=== PATIENT | female | born 1985 | race African-American/Black ===

== ENCOUNTER 2019-09-28 20:13 | Emergency (ER) | payer OTHER, MEDICAID, SELFPAY ==
[2019-09-28 20:14] VITALS: BP 139/80; PULSE 74; RESP 20; TEMP 36.8; O2SAT 100
[2019-09-28 21:14] VITALS: BP 120/73; PULSE 80; RESP 14; TEMP 36.3; O2SAT 98
[2019-09-28 21:17] VITALS: O2SAT 98
--- NOTE | 2019-09-28 21:39 | ED.HEATRA ---
HPI - Head Injury General Chief complaint: Head Injury Stated complaint: head injury Time Seen by Provider: 09/28/19 21:29 Source: patient and RN notes reviewed Mode of arrival: ambulatory Limitations: no limitations History of Present Illness HPI Narrative: Pt is a 34 y/o female who presents to the ED with c/o lt frontal headache secondary to a head injury happening 4 days ago. She notes that she struck the lt side of her forehead on a device at work 4 days ago, and states that she has had persistent pain near the area of injury ever since. Pt notes that her pain intermittently radiates into the lt side of her neck. She states that she has been taking Ibuprofen 800 mg roughly every 4 hours for her pain, but notes that the medication only slightly alleviates her pain. Pt denies any numbness/tingling, changes in vision, changes in hearing, nausea, vomiting, facial droop, or slurred speech. MD Complaint: head pain Onset (ago): day(s) (4) Mechanism of Injury: work related injury Place: work Location of injury: frontal (lt frontal) Radiation: neck (lt side of neck) Other Injuries: none Associated symptoms: denies other symptoms Related Data Allergies Allergy/AdvReac Type Severity Reaction Status Date / Time aspirin Allergy Unknown Verified 07/02/16 20:21 Review of Systems Review of Systems: All systems reviewed & are unremarkable except as noted in HPI and below Eyes: Eyes: Denies change in vision ENT: Denies other (change in hearing) Gastrointestinal: Gastrointestinal: Denies nausea and Denies vomiting Neurologic: Denies Abnormal speech present (slurred speech), Reports headache(s) (lt frontal headache radiating into lt side of neck), Denies numbness, Denies tingling and Reports other (Reports: head injury. Denies: facial droop) PMFSH Past Medical History Medical History Anemia Crohn's disease Surgical History Surgical History Hx of section Social History Social History Smoking status: Former smoker Gender identity (if verbalized by the patient): Female Exam Narrative: Exam Narrative: GENERAL: Well-appearing, well-nourished, and in no acute distress. HEAD: Normocephalic, atraumatic. Eyes: PERRLA, EOMI. ENT: Mucous membranes moist. CHEST: Clear to auscultation. No respiratory distress. HEART: Regular rate and rhythm. Normal peripheral pulses. NEURO: No focal deficits. Alert and oriented x3. PSYCH: Normal mood and affect. Course Course Emergency Course: Recommend alternating ibuprofen and Tylenol. No symptoms of concussion. Seems to be related to traumatic injury as it is pinpoint over where she had struck her head. Vital Signs Vital signs: Vital Signs Temperature 98.2 F 09/28/19 20:14 Pulse Rate 74 09/28/19 20:14 Respiratory Rate 20 09/28/19 20:14 Blood Pressure 139/80 09/28/19 20:14 Pulse Oximetry 100 09/28/19 20:14 Temperature 97.3 F L 09/28/19 21:14 Pulse Rate 80 09/28/19 21:14 Respiratory Rate 14 09/28/19 21:14 Blood Pressure 120/73 09/28/19 21:14 Pulse Oximetry 98 09/28/19 21:17 Discharge Plan Discharge Clinical Impression: Headache Patient Disposition: Home, Self-Care Condition: Stable Instructions: Acute Headache (ED) Additional Instructions: Return the ER if you have a seizure, you have new confusion, you develop focal weakness or numbness in arm or leg, you have additional concerns. Alternate between ibuprofen and Tylenol to help treat your headache. Follow-up/Referrals: UNKNOWN,DOCTOR [Primary Care Provider] - 1 Week
[2019-09-28 22:24] VITALS: BP 119/69; PULSE 81; RESP 14; O2SAT 96
== END 2019-09-28 22:31 | disposition home or self-care (01) ==
PROVIDERS: Emergency Provider Emergency Medicine
DX: R51 Headache (principal); K50.90 Crohn's disease, unspecified, without complications; Z87.891 Personal history of nicotine dependence
CPT/HCPCS: 99283

== ENCOUNTER 2020-03-10 10:58 | Emergency (ER) | payer SELFPAY ==
--- NOTE | ~2020-03-10 | XR_ITS ---
EXAMINATION: XR foot LT min 3V DATE: 03/10/2020 11:49 INDICATION: Left foot pain TECHNIQUE: Dorsoplantar, lateral, and 2 oblique views of the left foot were obtained. COMPARISON: None. FINDINGS: There is no fracture, dislocation, or subluxation. The joint spaces and soft tissues are no rmal. Dorsal and plantar calcaneal enthesophytes are noted. IMPRESSION: 1. No acute osseous abnormality. Reviewed, dictated and finalized at location A.
--- NOTE | ~2020-03-10 | XR_ITS ---
EXAMINATION: XR knee LT min 4V DATE: 03/10/2020 11:48 INDICATION: Left knee pain TECHNIQUE: Four views of the left knee were obtained. COMPARISON: None. FINDINGS: Alignment is normal. No fracture or osteochondral lesion. Joint spaces are normal with no e rosions. No joint effusion/synovitis. Soft tissues are unremarkable. IMPRESSION: 1. No acute osseous abnormality. Reviewed, dictated and finalized at location A.
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
[2020-03-10 11:26] VITALS: BP 125/78; PULSE 77; RESP 16; TEMP 36.2; O2SAT 100
== END 2020-03-10 12:34 | disposition home or self-care (01) ==
PROVIDERS: Emergency Provider Nurse Practitioner Family
DX: M79.675 Pain in left toe(s) (principal); M79.89 Other specified soft tissue disorders; S83.92XA Sprain of unspecified site of left knee, initial encounter; W01.0XXA Fall on same level from slipping, tripping and stumbling without subsequent striking against object, initial encounter; K50.90 Crohn's disease, unspecified, without complications
CPT/HCPCS: 73564; 73630; 99213; G0463

== ENCOUNTER 2020-03-22 12:01 | Emergency (ER) | payer MEDICARE, OTHER, MEDICAID, SELFPAY ==
[2020-03-22 12:19] VITALS: BP 104/81; PULSE 82; RESP 16; TEMP 36.9; O2SAT 100
--- NOTE | 2020-03-22 12:31 | ED.DENTAL ---
HPI - Dental/Oral General Chief complaint: Dental/Oral Stated complaint: abscess in mouth History of Present Illness HPI Narrative: This is a a 35-year-old female comes in complaining of tooth pain. Patient states that it started on Friday and she has been taking Tylenol and ibuprofen patient has a dentist appointment for the of this month do not able to get in any sooner. Patient denies any allergy states she is been gargling warm salt water but she is afraid she is getting an abscess at this time Related Data Allergies Allergy/AdvReac Type Severity Reaction Status Date / Time No Known Allergies Allergy Verified 03/22/20 12:26 Review of Systems Review of Systems: Narrative: CONSTITUTIONAL: Denies fever, chills, or sweats. EYES: Denies visual changes, redness, or discharge. ENT: Denies rhinorrhea, congestion, sore throat, or otalgia. CARDIOVASCULAR:Denies chest pain, palpitations, or edema. RESPIRATORY: Denies cough or dyspnea. GASTROINTESTINAL: Denies abdominal pain, nausea, vomiting, or diarrhea. GENITOURINARY: Denies dysuria or hematuria. SKIN:[Denies rash or itching. MUSCULOSKELETAL:Denies back pain, joint pain, or myalgia. NEUROLOGIC: Denies headache, numbness, or weakness. PSYCHIATRIC:Denies anxiety or depression Tooth pain PMFSH Social History Social History Gender identity (if verbalized by the patient): Female Comments At time as signature, I have reviewed and agree with nursing past medical, social, surgical and family history. Please see nursing chart for further information. There is no relevant family history pertinent to the presenting complaint. Exam Narrative: Exam Narrative: GENERAL:Well-appearing, well-nourished, and in no acute distress. HEAD:Normocephalic, atraumatic. EYES: PERRLA and EOMI. ENT: Nares clear, no rhinorrhea or epistaxis. Mucous membranes moist swollen left lower Gumline missing dental cap NECK: Supple. CHEST: Clear to auscultation. No respiratory distress. HEART: Regular rate and rhythm. No murmur heard. Normal peripheral pulses. ABDOMEN: Soft, nontender, nondistended, normal active bowel sounds. EXTREMITIES: Normal range of motion. No edema. SKIN: Warm, dry, no rash. NEURO: No focal deficits. Alert and oriented x3. Course Vital Signs Vital signs: Vital Signs Temperature 98.4 F 03/22/20 12:19 Pulse Rate 82 03/22/20 12:19 Respiratory Rate 16 03/22/20 12:19 Blood Pressure 104/81 03/22/20 12:19 Pulse Oximetry 100 03/22/20 12:19 Temperature 98.4 F 03/22/20 12:19 Pulse Rate 82 03/22/20 12:19 Respiratory Rate 16 03/22/20 12:19 Blood Pressure 104/81 03/22/20 12:19 Pulse Oximetry 100 03/22/20 12:19 Discharge Plan Discharge Clinical Impression: Toothache, Dental caries, Dental abscess Patient Disposition: Home, Self-Care Condition: Stable Instructions: Antibiotic Form, Dental Abscess (ED), Mouth Care (ED) Additional Instructions: instruction antibiotic as directed Avoid temperature extremes May apply heat or ice to the face Gentle brushing and flossing Alternate tylenol and ibuprofen as needed for pain Follow-up with the dentist as soon as possible--see the list provided Prescriptions: New amoxicillin-pot clavulanate [Augmentin] 875-125 mg tablet 1 tablet PO Q12H 10 Days Qty: 20 RF: 0 tramadol 50 mg tablet 50 mg PO Q6H PRN (Reason: pain) Qty: 10 RF: 0 Follow-up/Referrals: Salena,MD Rosalina [Primary Care Provider] - Time of Disposition: 13:00 Discharge Date/Time: 03/22/20 12:43
== END 2020-03-22 12:43 | disposition home or self-care (01) ==
PROVIDERS: Emergency Provider Nurse Practitioner Family; PCP Internal Medicine
DX: K02.9 Dental caries, unspecified (principal); K04.7 Periapical abscess without sinus
CPT/HCPCS: 99203; G0463

== ENCOUNTER 2021-02-24 12:32 | Emergency (ER) | payer MEDICARE, MEDICAID, SELFPAY ==
[2021-02-24 12:44] VITALS: BP 104/69; PULSE 78; RESP 16; TEMP 36.9; O2SAT 100
--- NOTE | 2021-02-24 13:12 | ED.URI ---
HPI - URI/Sore Throat General Chief Complaint: Upper Respiratory Infection Stated Complaint: Loss of smell and taste Time Seen by Provider: 02/24/21 12:54 Source: patient and RN notes reviewed Mode of arrival: ambulatory Limitations: no limitations History of Present Illness HPI Narrative: Patient presents today with a 3-day history rhinorrhea and ear clogging. 2 days ago a coworker tested positive for COVID-19, yesterday patient lost her sense of taste and smell. She denies cough, fever, shortness of breath, sore throat. She has not tried anything for her symptoms. She has not been vaccinated against COVID-19. History of Crohn's disease, for which she takes no medication. MD elicited complaint: rhinorrhea Related Data Home Medications Medication Instructions Recorded Confirmed No Home Medications 02/24/21 02/24/21 Allergies Allergy/AdvReac Type Severity Reaction Status Date / Time aspirin Allergy Unknown Other Verified 02/24/21 13:02 Review of Systems Review of Systems: CONSTITUTIONAL: Denies body aches, fever, chills, or sweats. EYES: Denies visual changes, redness, or discharge. ENT: Denies congestion, sore throat, or otalgia.+ Rhinorrhea, loss of taste and smell, ear clogging CARDIOVASCULAR: Denies chest pain, palpitations, or edema. RESPIRATORY: Denies cough or dyspnea. GASTROINTESTINAL: Denies abdominal pain, nausea, vomiting, or diarrhea. GENITOURINARY: Denies dysuria or hematuria. SKIN: Denies rash, itching, or wounds. MUSCULOSKELETAL: Denies back pain, joint pain, or myalgia. NEUROLOGIC: Denies headache, numbness, tingling, or weakness. PSYCH: Denies depression or anxiety. [facility] Past Medical History Medical History Anemia Crohn's disease Surgical History Surgical History Hx of section Social History Social History Smoking status: Former smoker Gender identity (if verbalized by the patient): Female Comments At time of signature, I have reviewed and agree with nursing past medical, surgical, social and family history unless otherwise noted. Please see nursing chart for further information. There is no relevant family history pertinent to the presenting complaint Exam Narrative: GENERAL: Well-appearing, well-nourished, and in no acute distress. HEAD: Normocephalic, atraumatic. EYES: EOMI. No redness or drainage. Conjunctivae normal. ENT: Mucous membranes pink and moist. Nares congested with rhinorrhea. TMs normal bilaterally. Throat normal. Uvula midline. NECK: Normal AROM. Supple. No lymphadenopathy. CHEST: No respiratory distress. Clear to auscultation. HEART: Regular rate and rhythm. No murmur appreciated. Normal peripheral pulses. EXTREMITIES: Normal range of motion. No edema. SKIN: Warm, dry, no rash. Capillary refill normal. Normal skin turgor. NEURO: No focal deficits. Alert and oriented x3. Gait steady. PSYCH: Normal affect. No signs of depression or anxiety. Course Vital Signs Vital signs: Vital Signs Temperature 98.4 F 02/24/21 12:44 Pulse Rate 78 02/24/21 12:44 Respiratory Rate 16 02/24/21 12:44 Blood Pressure 104/69 02/24/21 12:44 Pulse Oximetry 100 02/24/21 12:44 Temperature 98.4 F 02/24/21 12:44 Pulse Rate 78 02/24/21 12:44 Respiratory Rate 16 02/24/21 12:44 Blood Pressure 104/69 02/24/21 12:44 Pulse Oximetry 100 02/24/21 12:44 Reviewed MDM - URI/Sore Throat Differential Diagnosis Differential diagnosis: Likely upper respiratory infection, sinusitis, viral infection and other (COVID-19) Lab Data Attestation: I reviewed the patient's lab results. Lab results narrative: Rapid COVID-19 test positive Critical Care Time Critical Care Time Critical Care Time: No Discharge Plan Discharge Clinical Impression: COVID-19 Ignacio
== END 2021-02-24 13:22 | disposition home or self-care (01) ==
PROVIDERS: Emergency Provider Nurse Practitioner; PCP Internal Medicine
DX: U07.1 COVID-19 (principal); Z87.891 Personal history of nicotine dependence; K50.90 Crohn's disease, unspecified, without complications; D64.9 Anemia, unspecified
CPT/HCPCS: 87426; 99213; C9803; G0463

== ENCOUNTER 2021-11-21 15:04 | Emergency (ER) | payer MEDICARE, OTHER, MEDICAID, SELFPAY ==
[2021-11-21 15:14] VITALS: BP 126/81; PULSE 88; RESP 16; TEMP 37.8; O2SAT 98
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
== END 2021-11-21 15:47 | disposition home or self-care (01) ==
PROVIDERS: Emergency Provider Nurse Practitioner Family; PCP Internal Medicine
DX: M54.12 Radiculopathy, cervical region (principal); G93.5 Compression of brain; Z87.891 Personal history of nicotine dependence
CPT/HCPCS: 99213; G0463

== ENCOUNTER 2022-09-29 11:03 | Emergency (ER) | payer OTHER, MEDICARE, MEDICAID, SELFPAY ==
[2022-09-29 11:16] VITALS: BP 120/70; PULSE 70; RESP 16; TEMP 37.1; O2SAT 99
--- NOTE | 2022-09-29 11:35 | ED.DENTAL ---
HPI - Dental/Oral General Chief complaint: Dental/Oral Stated complaint: tooth pain Time Seen by Provider: 09/29/22 11:20 Source: patient Mode of arrival: ambulatory Limitations: no limitations History of Present Illness HPI Narrative: Silvina is a 37-year-old female patient presenting to the clinic today with complaints of dental pain. She reports that she has had dental pain for few days. Has not been able to get into her dentist. She denies any fever or chills. Related Data Allergies Allergy/AdvReac Type Severity Reaction Status Date / Time aspirin Allergy Unknown Other Verified 09/29/22 11:22 [facility] Past Medical History Medical History Anemia Crohn's disease Surgical History Surgical History Hx of section Social History Social History Smoking status: Former smoker Gender identity (if verbalized by the patient): Female Comments At the time of my signature, I reviewed and agree with the nursing past medical, surgical, social, and family history. There is no relevant family history pertinent to the patient complaint. Exam Narrative: General: Well-developed, well nourished, in no apparent distress Head: Normocephalic, atraumatic Eyes: Pupils equally round and reactive to light bilaterally, EOM intact, sclera and conjunctive clear, no discharge, lids normal Ears: TMs intact and clear, ear canals clear, no drainage, grossly hearing normal. Nose: Nares patent, no discharge, no inflammation, no sinus tenderness. Mouth: Oropharynx without lesions or masses, poor dentition, MMM. Dental pain to palpation to the 1st molar of the left lower Neck: Supple, trachea midline, no enlargement of anterior or posterior cervical nodes, no thyroid masses or goiter palpable. Cardio: Regular rate and rhythm, s1 and s2 normal, no murmur appreciated. Resp: Clear to auscultation bilaterally anteriorly and posteriorly, no rhonchi, rales, wheezing or rubs Course Course Emergency Course: Portions of this record may have been created with voice recognition software. Level of Care: Express Care Visit Vital Signs Vital signs: Vital Signs Temperature 37.1 C 09/29/22 11:16 Pulse Rate 70 09/29/22 11:16 Respiratory Rate 16 09/29/22 11:16 Blood Pressure 120/70 09/29/22 11:16 Pulse Oximetry 99 09/29/22 11:16 Oxygen Delivery Room Air 09/29/22 11:16 Temperature 37.1 C 09/29/22 11:16 Pulse Rate 70 09/29/22 11:16 Respiratory Rate 16 09/29/22 11:16 Blood Pressure 120/70 09/29/22 11:16 Pulse Oximetry 99 09/29/22 11:16 Oxygen Delivery Room Air 09/29/22 11:16 Vital signs reviewed MDM - Dental/Oral MDM Narrative Medical decision making narrative: At the time of the patient is resting comfortably on exam table. I suspect the patient has toothache. Will send in prescription for amoxicillin discussed use of Tylenol Motrin for pain. Supportive measures were discussed with the patient she voiced understanding discharge instructions and agrees to treatment plan Differential Diagnosis Differential diagnosis: Likely dental caries, toothache and dental abscess Discharge Plan Discharge Clinical Impression: Toothache Patient Disposition: Home, Self-Care Condition: Stable Instructions: Antibiotic Form, Toothache (ED) Additional Instructions: Take Tylenol/Motrin as needed for pain Take amoxicillin as prescribed May apply cool or heat pack to the affected area Follow-up with your dentist as soon as possible Prescriptions: New amoxicillin 500 mg tablet 500 mg PO Q8H 10 Days Qty: 30 0RF Follow-up/Referrals: Salena,MD Rosalina [Primary Care Provider] - Stand Alone Forms: Work/School Release IP Time of Disposition: 11:36 Quality NIHSS Nursing Documentation ED NIHSS nu
== END 2022-09-29 11:46 | disposition home or self-care (01) ==
PROVIDERS: Emergency Provider Nurse Practitioner Family; PCP Internal Medicine
DX: K08.89 Other specified disorders of teeth and supporting structures (principal); Z87.891 Personal history of nicotine dependence
CPT/HCPCS: 99213; G0463